=== PATIENT | male | born 1980 | race Caucasian/White ===

== ENCOUNTER 2016-10-17 20:57 | Emergency (ER) | payer SELFPAY ==
[2016-10-17 21:23] VITALS: BP 139/82; PULSE 113; TEMP 98.8; BMI 26.6
--- NOTE | 2016-10-17 23:34 | PDOC ---
History of Present Illness - General History Source: Patient Exam Limitations: No Limitations - History of Present Illness Initial Comments: 10/17/16 23:47 The patient is a 36 year old male with a significant PMH of diabetes (on Metformin) and moderate cigarette use who presents to the emergency department with a subjective fever and malaise beginning approximately this afternoon. The patient reports associated nausea and vomiting from about 4:00PM this afternoon. The patient also notes occasional productive cough with his subjective fever. The patient denies recent sick contacts or recent travel. The patient denies chest pain, shortness of breath, headache and dizziness. Denies chills, diarrhea and constipation. Denies dysuria, frequency, urgency and hematuria. Allergies: NKA Past surgical history: Lung surgery. Social history: Moderate cigarette use. No alcohol or drug use. PCP: Dr. Naranjo <Tex Pinto - Last Filed: 10/17/16 23:50> - General History Source: Patient <Yefri Loredo - Last Filed: 10/18/16 19:14> - General Chief Complaint: Pain Stated Complaint: PAIN Time Seen by Provider: 10/17/16 23:27 Past History <Tex Pinto - Last Filed: 10/17/16 23:50> - Past Medical History Diabetes: Yes Suicide Attempt (Hx): No - Surgical History Lung Surgery: Yes - Psycho/Social/Smoking Cessation Hx Anxiety: No Suicidal Ideation: No Smoking History: Current some day smoker Have you smoked in the past 12 months: Yes Number of Cigarettes Smoked Daily: 3 Information on smoking cessation initiated: No Hx Alcohol Use: No Drug/Substance Use Hx: No Substance Use Type: Alcohol <Yefri Loredo - Last Filed: 10/18/16 19:14> - Past Medical History Allergies/Adverse Reactions: Allergies Allergy/AdvReac Type Severity Reaction Status Date / Time No Known Allergies Allergy Verified 07/11/14 21:30 Home Medications: Ambulatory Orders Metformin HCl 500 mg PO BID 10/17/16 Azithromycin [Zithromax -] 250 mg PO UTDICT #6 tab 10/18/16 Review of Systems - Review of Systems Comments:: 10/17/16 23:48 CONSTITUTIONAL: (+) Subjective fever. (+) Malaise Absent: chills, diaphoresis, generalized weakness, loss of appetite HEENT: Absent: rhinorrhea, nasal congestion, throat pain, throat swelling, difficulty swallowing, mouth swelling, ear pain, eye pain, visual Changes CARDIOVASCULAR: Absent: chest pain, syncope, palpitations, irregular heart rate, lightheadedness , peripheral edema RESPIRATORY: Absent: cough, shortness of breath, dyspnea with exertion, orthopnea, wheezing, stridor, hemoptysis GASTROINTESTINAL: Absent: abdominal pain, abdominal distension, nausea, vomiting, diarrhea, constipation, melena, hematochezia GENITOURINARY: Absent: dysuria, frequency, urgency, hesitancy, hematuria, flank pain, genital pain MUSCULOSKELETAL: Absent: myalgia, arthralgia, joint swelling SKIN: Absent: rash, itching, pallor HEMATOLOGIC/IMMUNOLOGIC: Absent: easy bleeding, easy bruising, lymphadenopathy, frequent infections ENDOCRINE: Absent: unexplained weight gain, unexplained weight loss, heat intolerance, cold intolerance NEUROLOGIC: Absent: headache, focal weakness or paresthesias, dizziness, unsteady gait, seizure, mental status changes, bladder or bowel incontinence PSYCHIATRIC: Absent: anxiety, depression, suicidal or homicidal ideation, hallucinations. <Tex Pinto - Last Filed: 10/17/16 23:50> *Physical Exam - Vital Signs Last Vital Signs Temp Pulse Resp BP Pulse Ox 98.8 F 113 H 19 139/82 97 10/17/16 21:15 10/17/16 21:15 10/17/16 21:15 10/17/16 21:15 10/17/16 21:15 - Physical Exam Comments: 10/17/16 23:48 GENERAL: (+) Mild distress. Well developed, well nourished. Awake and alert. HEENT: (+) Dry oral mucosa. Normocephalic, atraumatic. PERRLA, EOMI. No conjunctival pallor. Sclera are non- icteric. Oropharynx is clear. NECK: Supple. Full ROM. No JVD. Carotid pulses 2+ and symmetric, without bruits. No thyromegaly. No lymphadenopathy. CARDIOVASCULAR: Regular rate and rhythm. No murmurs, rubs, or gallops. Distal pulses are 2+ and symmetric. PULMONARY: No evidence of respiratory distress. Lungs clear to auscultation bilaterally. No wheezing, rales or rhonchi. ABDOMINAL: Soft. Non-tender. Non-distended. No rebound or guarding. No organomegaly. Normoactive bowel sounds. MUSCULOSKELETAL Normal range of motion at all joints. No bony deformities or tenderness. No CVA tenderness. EXTREMITIES: No cyanosis. No clubbing. No edema. No calf tenderness. SKIN: Warm and dry. Normal capillary refill. No rashes. No jaundice. NEUROLOGICAL: Alert, awake, appropriate. Cranial nerves 2-12 intact. No deficits to light touch and temperature in face, upper extremities and lower extremities. No motor deficits in the in face, upper extremities and lower extremities. Normoreflexic in the upper and lower extremities. Normal speech. Toes are downgoing bilaterally. Gait is normal without ataxia. PSYCHIATRIC: Cooperative. Good eye contact. Appropriate mood and affect. <Tex Pinto - Last Filed: 10/17/16 23:50> - Vital Signs Last Vital Signs Temp Pulse Resp BP Pulse Ox 98.8 F 113 H 19 139/82 97 10/17/16 21:15 10/17/16 21:15 10/17/16 21:15 10/17/16 21:15 10/17/16 21:15 <Yefri Loredo - Last Filed: 10/18/16 19:14> ED Treatment Course - LABORATORY CBC & Chemistry Diagram: 10/18/16 00:05 10/18/16 00:05 <Yefri Loredo - Last Filed: 10/18/16 19:14> Medical Decision Making - Medical Decision Making 10/18/16 19:14 Dr. Loredo: The scribe's documentation has been prepared under my direction and personally reviewed by me in its entirery. I confirm that the note above accurately reflects all work, treatment, procedures, and medical decision making performed by me. <Yefri Loredo - Last Filed: 10/18/16 19:14> *DC/Admit/Observation/Transfer - Attestations Scribe Attestion: 10/17/16 23:48 Documentation prepared by Tex Pinto, acting as medical technologist microbiology for Yefri Loredo MD. <Tex Pinto - Last Filed: 10/17/16 23:50> - Discharge Dispostion Admit: No <Yefri Loredo - Last Filed: 10/18/16 19:14> Diagnosis at time of Disposition: Bronchitis - Discharge Dispostion Disposition: HOME Condition at time of disposition: Stable - Prescriptions Prescriptions: Azithromycin [Zithromax -] 250 mg PO UTDICT #6 tab - Referrals Referrals: Chay Naranjo [Primary Care Provider] - - Patient Instructions Printed Discharge Instructions: DI for Acute Bronchitis Print Language: [place] - Post Discharge Activity Work/School Note: Back to Work
[2016-10-17] MEDS ORDERED: SODIUM CHLORIDE 1,000 ML IV STA (23:36)
[2016-10-17] MEDS ORDERED: METOCLOPRAMIDE HCL INJECTION 10 MG/2 ML VIAL IVPUSH ONE (23:36)
[2016-10-17] MEDS ORDERED: METOCLOPRAMIDE HCL INJECTION 10 MG/2 ML VIAL ONE (23:53)
[2016-10-18 00:11] LABS: BASOPHIL 0.2 % (0-2.0); EOSINOPHIL 0.6 % (0-4.5); MCH 29.1 pg (25.7-33.7); MCHC 33.6 g/dl (32.0-35.9); MEAN CELL VOLUME 86.4 fl (80-96); MEAN PLT VOLUME 8.7 fl (7.5-11.1); NEUTROPHILS 89.7 % (42.8-82.8); PLATELET COUNT 229 K/MM3 (134-434); RDW 12.6 % (11.9-15.9); WHITE BLOOD COUNT 16.2 K/mm3 (4.0-10.0)
[2016-10-18 00:34] LABS: INR 1.11 (0.82-1.09); PROTHROMBIN TIME (PATIENT) 12.2 SEC (9.98-11.88)
[2016-10-18 00:47] LABS: ALBUMIN 3.9 g/dl (3.4-5.0); ALK PHOS 60 U/L (45-117); ANION GAP 10 (8-16); BILIRUBIN,TOTAL 1.3 mg/dL (0.2-1.0); CO2 26 mmol/L (21-32); CREATININE 0.8 mg/dL (0.7-1.3); GLUCOSE,RANDOM 198 mg/dL (74-106); MAGNESIUM 1.5 mg/dL (1.8-2.4); SGOT/AST 16 U/L (15-37); SGPT/ALT 27 U/L (12-78)
[2016-10-18 01:44] LABS: URINE APPEARANCE CLEAR; URINE BILIRUBIN NEGATIVE (NEGATIVE); URINE BLOOD 1+ (NEGATIVE); URINE COLOR LTYELLOW; URINE GLUCOSE (UA) NEGATIVE (NEGATIVE); URINE KETONE NEGATIVE (NEGATIVE); URINE LEUK ESTERASE NEGATIVE (NEGATIVE); URINE NITRITE NEGATIVE (NEGATIVE); URINE PROTEIN NEGATIVE (NEGATIVE); URINE UROBILINOGEN NEGATIVE mg/dL (0.2-1.0)
[2016-10-18 01:46] LABS: URINE RBC <1 /hpf (0-3); URINE WBC 1 /hpf (3-5)
[2016-10-18] MEDS ORDERED: AZITHROMYCIN 250 MG TABLET PO STA (02:07)
[2016-10-18] MEDS ORDERED: AZITHROMYCIN 250 MG TABLET ONE (02:20)
== END 2016-10-18 02:25 | disposition home or self-care (01) ==
LOC: JER 20:57
PROC: 3E0337Z Introduction of Electrolytic and Water Balance Substance into Peripheral Vein, Percutaneous Approach (ICD-10-PCS; principal; 2016-10-17)
PROC: 3E033GC Introduction of Other Therapeutic Substance into Peripheral Vein, Percutaneous Approach (ICD-10-PCS; 2016-10-17)
DX: J20.9 Acute bronchitis, unspecified (principal); E11.9 Type 2 diabetes mellitus without complications; Z79.84 Long term (current) use of oral hypoglycemic drugs; F17.210 Nicotine dependence, cigarettes, uncomplicated
CPT/HCPCS: 36415; 71020-TC; 80053; 81003; 81015; 83690; 83735; 85025; 85610; 99282-25

== ENCOUNTER 2017-12-10 02:13 | Emergency (ER) | payer SELFPAY ==
[2017-12-10 02:40] VITALS: BP 133/88; PULSE 82; TEMP 98.7; BMI 26.2
[2017-12-10] MEDS ORDERED: ACETAMINOPHEN 1000 MG/100 ML VIAL (NON FORMULARY) IVPB ONE (03:08)
[2017-12-10] MEDS ORDERED: SODIUM CHLORIDE 1,000 ML IV STA (03:08)
[2017-12-10] MEDS ORDERED: FAMOTIDINE 20 MG/50 ML IVPB 20 MG/50 ML MG IVPB ONE ×2 (03:08→04:11)
--- NOTE | 2017-12-10 03:17 | PDOC ---
History of Present Illness - General Chief Complaint: Weakness Stated Complaint: HIGH BLOOD SUGAR Time Seen by Provider: 12/10/17 02:58 History Source: Patient Exam Limitations: Language Barrier (phone education program coordinator used) - History of Present Illness Initial Comments: 12/10/17 03:12 Patient is a 37M with history of DM here today complaining of high blood sugar. He also is complaining of dysuria and states that he has epigastric abdominal pain. He states these symptoms have been present for the past 10 days. Endorses subjective fevers, denies chills. Denies constipation diarrhea. He states that he thinks his sugar is high because his mouth is dry. Denies etoh, tobacco, illicits. Denies prior surgeries. Past History - Past Medical History Allergies/Adverse Reactions: Allergies Allergy/AdvReac Type Severity Reaction Status Date / Time No Known Allergies Allergy Verified 12/10/17 02:40 Home Medications: Ambulatory Orders metFORMIN HCL [Metformin HCl] 1,000 mg PO BID 10/17/16 COPD: No Diabetes: Yes - Surgical History Lung Surgery: Yes - Suicide/Smoking/Psychosocial Hx Smoking History: Never smoked Have you smoked in the past 12 months: No Number of Cigarettes Smoked Daily: 3 Information on smoking cessation initiated: No Hx Alcohol Use: No Drug/Substance Use Hx: No Substance Use Type: Alcohol Review of Systems - Review of Systems Comments:: 12/10/17 03:15 GENERAL/CONSTITUTIONAL: +fever or chills. No weakness. HEAD, EYES, EARS, NOSE AND THROAT: No change in vision. No ear pain or discharge. No sore throat. CARDIOVASCULAR: No chest pain or shortness of breath RESPIRATORY: No cough, wheezing, or hemoptysis. GASTROINTESTINAL: No nausea, vomiting, diarrhea or constipation. GENITOURINARY: +dysuria, no frequency MUSCULOSKELETAL: No joint or muscle swelling or pain. No neck or back pain. SKIN: No rash NEUROLOGIC: No headache, vertigo, loss of consciousness, or change in strength/ sensation. ENDOCRINE: + increased thirst. No abnormal weight change HEMATOLOGIC/LYMPHATIC: No anemia, easy bleeding, or history of blood clots. ALLERGIC/IMMUNOLOGIC: No hives or skin allergy. *Physical Exam - Vital Signs Last Vital Signs Temp Pulse Resp BP Pulse Ox 98.7 F 82 16 133/88 97 12/10/17 02:35 12/10/17 02:35 12/10/17 02:35 12/10/17 02:35 12/10/17 02:35 - Physical Exam Comments: 12/10/17 03:16 GENERAL: Awake, alert, and fully oriented, in no acute distress HEAD: No signs of trauma, normocephalic, atraumatic EYES: PERRLA, EOMI, sclera anicteric, conjunctiva clear ENT: Auricles normal inspection, hearing grossly normal, nares patent, oropharynx clear without exudates. Moist mucosa NECK: Normal ROM, supple, no lymphadenopathy, JVD, or masses LUNGS: No distress, speaks full sentences, clear to auscultation bilaterally HEART: Regular rate and rhythm, normal S1 and S2, no murmurs, rubs or gallops, peripheral pulses normal and equal bilaterally. ABDOMEN: Soft, nontender, normoactive bowel sounds. No guarding, no rebound. No masses EXTREMITIES: Normal inspection, Normal range of motion, no edema. No clubbing or cyanosis. NEUROLOGICAL: Cranial nerves II through XII grossly intact. Normal speech, normal gait, no focal sensorimotor deficits SKIN: Warm, Dry, normal turgor, no rashes or lesions noted. ED Treatment Course - LABORATORY CBC & Chemistry Diagram: 12/10/17 03:19 12/10/17 03:19 Medical Decision Making - Medical Decision Making 12/10/17 03:16 Patient is 37M with history of DM here today complaining of epigastric abdominal pain, dysuria and possible high blood sugar. Vitals normal and stable. Exam benign. Will evaluate with abdominal labs and EKG. Will treat with fluids, tylenol, pepcid. Likely discharge. 12/10/17 03:32 EKG shows normal sinus rhythm with rate of 76. No st elevations/depressions. Normal axis. Normal intervals. No significant t wave abnormalities. 12/10/17 04:18 Laboratory Tests 12/10/17 12/10/17 12/10/17 03:08 03:19 03:19 WBC 9.8 Hgb 15.2 Plt Count 225 BUN 14 Creatinine 0.9 Random Glucose 186 H Urine Nitrite Negative Ur Leukocyte Esterase Negative CBC normal. CMP reassuring. UA clear. Lipase normal. Patient reports feeling better. Nontender abdominal exam. Will discharge. *DC/Admit/Observation/Transfer Diagnosis at time of Disposition: Hyperglycemia - Discharge Dispostion Disposition: HOME Condition at time of disposition: Good Decision to Admit order: No - Referrals Referrals: Chay Naranjo [Primary Care Provider] - - Patient Instructions Printed Discharge Instructions: Type 2 Diabetes Additional Instructions: Por favor nitin un seguimiento con silva mdico de atencin primaria para silva diabetes. Por favor regrese si tiene sntomas nuevos, que empeoran o estn relacionados, especialmente fiebre y dolor en aumento. Print Language: [place] - Post Discharge Activity
--- NOTE | 2017-12-10 03:28 | PDOC ---
Attending Attestation - Resident Resident Name: Shaun Kc - ED Attending Attestation I have performed the following: I have examined & evaluated the patient, The case was reviewed & discussed with the resident, I agree w/resident's findings & plan - HPI HPI: 12/10/17 03:29 Pt comes with specific complaint of dysuria, dry mouth and pancreatic pain. - Physicial Exam PE: 12/10/17 03:45 Normal exam. Pt has clear lungs and soft abd and pelvis. No flank pain. Afebrile pt has no swelling of extremities and he has no neuro deficits. - Medical Decision Making 12/10/17 03:46 Labs and hydration and home with meds, as needed. 12/10/17 06:50 Labs are normal, and pt feels great and he will be discharged home. Follow with PMD.
[2017-12-10] MEDS ORDERED: ACETAMINOPHEN INJECTION 100 ML IVPB ONE (03:36)
[2017-12-10 03:37] LABS: BASO % 0.4 % (0-2.0); EOS % 2.7 % (0-4.5); HEMATOCRIT 45.5 % (35.4-49); HEMOGLOBIN 15.2 GM/dL (11.7-16.9); LYMPH % 28.5 % (8-40); MCH 28.9 pg (25.7-33.7); MCHC 33.5 g/dl (32.0-35.9); MEAN CELL VOLUME 86.4 fl (80-96); MEAN PLT VOLUME 8.5 fl (7.5-11.1); MONO % 6.7 % (3.8-10.2); NEUT % 61.7 % (42.8-82.8); PLATELET COUNT 225 K/MM3 (134-434); RBC 5.27 M/mm3 (4.00-5.60); RDW 13.4 % (11.9-15.9); WHITE BLOOD COUNT 9.8 K/mm3 (4.0-10.0)
[2017-12-10 03:46] LABS: URINE APPEARANCE CLEAR; URINE BILIRUBIN NEGATIVE (<2.0 mg/dL); URINE COLOR COLORLESS; URINE GLUCOSE (UA) NEGATIVE (NEGATIVE); URINE KETONE NEGATIVE (NEGATIVE); URINE LEUK ESTERASE NEGATIVE (NEGATIVE); URINE NITRITE NEGATIVE (NEGATIVE); URINE PROTEIN NEGATIVE (NEGATIVE); URINE UROBILINOGEN NEGATIVE mg/dL (0.2-1.0)
[2017-12-10 04:05] LABS: ALBUMIN 3.8 g/dl (3.4-5.0); ALK PHOS 56 U/L (45-117); ANION GAP 10 MMOL/L (8-16); BILIRUBIN,TOTAL 0.6 mg/dL (0.2-1); BLOOD UREA NITROGEN 14 mg/dL (7-18); CALCIUM 9.2 mg/dL (8.5-10.1); CHLORIDE 105 mmol/L (98-107); CO2 25 mmol/L (21-32); CREATININE 0.9 mg/dL (0.55-1.3); GLUCOSE,RANDOM 186 mg/dL (74-106); LIPASE 335 U/L (73-393); POTASSIUM 3.9 mmol/L (3.5-5.1); SGOT/AST 21 U/L (15-37); SGPT/ALT 23 U/L (13-61); SODIUM 140 mmol/L (136-145); TOT PROT 7.2 g/dl (6.4-8.2)
--- NOTE | 2017-12-10 09:43 | EKG ---
Test Reason : Blood Pressure : / mmHG Vent. Rate : 076 BPM Atrial Rate : 076 BPM P-R Int : 154 ms QRS Dur : 098 ms QT Int : 368 ms P-R-T Axes : 045 050 057 degrees QTc Int : 414 ms NORMAL SINUS RHYTHM NORMAL ECG WHEN COMPARED WITH ECG OF 26-APR-2017 01:40, NO SIGNIFICANT CHANGE WAS FOUND Confirmed by BRAD MCKEON MD ([id number]) on 12/10/2017 9:42:27 AM Referred By: Confirmed By:BRAD MCKEON MD
== END 2017-12-10 05:02 | disposition home or self-care (01) ==
LOC: JER 02:13
PROC: 3E0337Z Introduction of Electrolytic and Water Balance Substance into Peripheral Vein, Percutaneous Approach (ICD-10-PCS; principal; 2017-12-10)
PROC: 3E033GC Introduction of Other Therapeutic Substance into Peripheral Vein, Percutaneous Approach (ICD-10-PCS; 2017-12-10)
PROC: 3E033NZ Introduction of Analgesics, Hypnotics, Sedatives into Peripheral Vein, Percutaneous Approach (ICD-10-PCS; 2017-12-10)
DX: E11.65 Type 2 diabetes mellitus with hyperglycemia (principal); Z79.84 Long term (current) use of oral hypoglycemic drugs
CPT/HCPCS: 36415; 80053; 81003; 83690; 85025; 93005; 93010; 99283-25; J0131; J7030

== ENCOUNTER 2018-09-27 22:42 | Emergency (ER) | payer OTHER ==
[2018-09-27 23:00] VITALS: BP 120/86; PULSE 75; TEMP 98.4; BMI 26.6
[2018-09-27] MEDS ORDERED: SODIUM CHLORIDE 1,000 ML IV STA (23:35)
--- NOTE | 2018-09-27 23:52 | PDOC ---
History of Present Illness - General Chief Complaint: Chest Pain Stated Complaint: HYPERGLYCEMIA History Source: Patient Exam Limitations: No Limitations - History of Present Illness Initial Comments: 09/27/18 23:33 38 yo male pmh DM presents to the ED for 2 weeks of elevated blood sugars. Pt states he takes 1000mg metformin daily, sees Urgent care staff (no specific PCP ) who prescribe it for him but he ran out of medication 2 weeks ago and has been unable to get a new prescription due to work. Pt also admits to numbness and tingling bilateral hands and R non exertional CP that are common when his BS is elevated. Denies recent illness, sick contacts, F/C/N/V, abdominal pain, changes in bowel or bladder habits Past History - Past Medical History Allergies/Adverse Reactions: Allergies Allergy/AdvReac Type Severity Reaction Status Date / Time No Known Allergies Allergy Verified 09/27/18 23:20 Home Medications: Ambulatory Orders metFORMIN HCL [Metformin HCl] 1,000 mg PO BID 10/17/16 Metformin HCl [Glucophage] 1,000 mg PO DAILY #5 tablet 09/28/18 COPD: No Diabetes: Yes - Surgical History Lung Surgery: Yes - Suicide/Smoking/Psychosocial Hx Smoking History: Never smoked Have you smoked in the past 12 months: No Number of Cigarettes Smoked Daily: 3 Hx Alcohol Use: No Drug/Substance Use Hx: No Substance Use Type: Alcohol Review of Systems - Review of Systems Constitutional: Yes: See HPI HEENTM: Yes: See HPI Respiratory: Yes: See HPI Cardiac (ROS): Yes: See HPI ABD/GI: Yes: See HPI : Yes: See HPI Musculoskeletal: Yes: See HPI Integumentary: Yes: See HPI Neurological: Yes: See HPI *Physical Exam - Vital Signs Last Vital Signs Temp Pulse Resp BP Pulse Ox 98.4 F 75 19 120/86 99 09/27/18 22:50 09/27/18 22:50 09/27/18 22:50 09/27/18 22:50 09/27/18 22:50 - Physical Exam General Appearance: Yes: Nourished, Appropriately Dressed. No: Apparent Distress HEENT: positive: EOMI Neck: positive: Supple. negative: Carotid bruit Respiratory/Chest: positive: Lungs Clear, Normal Breath Sounds. negative: Respiratory Distress Cardiovascular: positive: Regular Rhythm, Regular Rate, S1, S2. negative: Edema , JVD, Murmur Vascular Pulses: Dorsalis-Pedis (R): 4+, Doralis-Pedis (L): 4+ Gastrointestinal/Abdominal: positive: Flat, Soft. negative: Pulsatile Mass, Distended, Guarding, Rebound, Tenderness Musculoskeletal: negative: CVA Tenderness Extremity: positive: Normal Capillary Refill, Normal Inspection Integumentary: positive: Normal Color, Dry, Warm Neurologic: positive: Fully Oriented, Alert, Normal Mood/Affect, Normal Response ED Treatment Course - LABORATORY CBC & Chemistry Diagram: 09/27/18 11:55 09/27/18 11:55 - ADDITIONAL ORDERS Additional order review: Laboratory Results 09/27/18 23:18 POC Glucometer 361 09/27/18 23:18 POC Glucometer 361 - RADIOLOGY Radiology Studies Ordered: Category Date Time Status CHEST X-RAY PORTABLE* [RAD] Stat Radiology 09/27/18 23:31 Ordered Medical Decision Making - Medical Decision Making 09/28/18 02:06 38 yo male pmh DM presents to the ED for 2 weeks of elevated blood sugars. Pt states he takes 1000mg metformin daily, sees Urgent care staff (no specific PCP ) who prescribe it for him but he ran out of medication 2 weeks ago and has been unable to get a new prescription due to work. Pt also admits to numbness and tingling bilateral hands and R non exertional CP that are common when his BS is elevated. Denies recent illness, sick contacts, F/C/N/V, abdominal pain, changes in bowel or bladder habits vitals WNL pt well appearing, NAD EKG NSR without ischemic changes CXR no acute path DDX INLT: DKA/HHS, elevated BS, infection labs WNL including acetone, trop, WBC BS 361, will give 2L NS and reassess BS 230s after 2L Pt continues to be asymptomatic, resting comfortably will refill metformin for 5 days until pt can see PCP Will give referral to [facility] Pt understands and agrees with plan, strict return precautions given *DC/Admit/Observation/Transfer Diagnosis at time of Disposition: Hyperglycemia - Discharge Dispostion Disposition: HOME Condition at time of disposition: Stable Decision to Admit order: No - Referrals Referrals: [facility] [Provider Group] - Patient Instructions Printed Discharge Instructions: DI for Atypical Chest Pain, DI for Hyperglycemia -- Adult Additional Instructions: Consulte a shira santiagoico de alessia o llame para hacer julio c sis con el mdico de alessia que se le remiti en las prximas 48 horas. Vuelva a llenar silva medicamento para la diabetes y visite a mayda mdicos regularmente para chequeos. Regrese a la rissa de emergencias para detectar sntomas nuevos o preocupantes, que incluyen, entre otros: dolor en el pecho, azcar en siddhartha elevada / no controlada, incapacidad para comer o beber, fiebre win. Christopher Print Language: ENGLISH - Post Discharge Activity
[2018-09-28 00:31] LABS: URINE APPEARANCE CLEAR; URINE BILIRUBIN NEGATIVE (NEGATIVE); URINE COLOR YELLOW; URINE GLUCOSE (UA) 3+ (NEGATIVE); URINE KETONE NEGATIVE (NEGATIVE); URINE LEUK ESTERASE NEGATIVE (NEGATIVE); URINE NITRITE NEGATIVE (NEGATIVE); URINE PROTEIN NEGATIVE (NEGATIVE); URINE UROBILINOGEN 0.2 mg/dL (0.2-1.0)
[2018-09-28 00:32] LABS: BASO % 0.5 % (0-2.0); EOS % 1.4 % (0-4.5); HEMATOCRIT 44.3 % (35.4-49); LYMPH % 22.3 % (8-40); MCH 29.2 pg (25.7-33.7); MCHC 33.9 g/dl (32.0-35.9); MEAN CELL VOLUME 86.1 fl (80-96); MEAN PLT VOLUME 8.6 fl (7.5-11.1); NEUT % 69.8 % (42.8-82.8); PLATELET COUNT 248 K/MM3 (134-434); RBC 5.14 M/mm3 (4.00-5.60); WHITE BLOOD COUNT 8.5 K/mm3 (4.0-10.0)
[2018-09-28 01:11] LABS: ALBUMIN 3.8 g/dl (3.4-5.0); ALK PHOS 64 U/L (45-117); ANION GAP 8 MMOL/L (8-16); BILIRUBIN,TOTAL 0.5 mg/dL (0.2-1); BLOOD UREA NITROGEN 11.2 mg/dL (7-18); CALCIUM 8.9 mg/dL (8.5-10.1); CHLORIDE 102 mmol/L (98-107); CO2 26 mmol/L (21-32); POTASSIUM 3.9 mmol/L (3.5-5.1); SGOT/AST 15 U/L (15-37); SGPT/ALT 18 U/L (13-61); SODIUM 137 mmol/L (136-145); TOT PROT 6.9 g/dl (6.4-8.2)
[2018-09-28] MEDS ORDERED: SODIUM CHLORIDE 1,000 ML IV STA (01:15)
--- NOTE | 2018-09-28 01:16 | PDOC ---
Documentation entered by Vincent Link SCRIBE, acting as scribe for Eboni Montanez MD. Eboni Montanez MD: This documentation has been prepared by the Nikolay ramos Xhesika, SCRIBE, under my direction and personally reviewed by me in its entirety. I confirm that the documentation accurately reflects all work, treatment, procedures, and medical decision making performed by me. Attending Attestation - Resident Resident Name: Jg Garcia - ED Attending Attestation I have performed the following: I have examined & evaluated the patient, The case was reviewed & discussed with the resident, I agree w/resident's findings & plan, Exceptions are as noted - HPI HPI: 09/27/18 23:58 The patient is a 38 year old male with a significant PMH of DM who presents to the emergency department for 2 weeks of elevated blood sugar. The patient states he normally takes 1000mg of Metformin, however, he ran out of his medications the last 2 weeks and was unable to see his doctor (at urgent care) due to his work schedule. Patient states he endorses a numbness/tingling sensation on b/l hands and R sided chest pain, however, he notes he endorses these symptoms when his blood sugar is elevated. The patient denies shortness of breath, headache and dizziness. Denies fever, chills, cough, nausea, vomiting, diarrhea and constipation. Denies dysuria, frequency, urgency and hematuria. Allergies: NKDA - Physicial Exam PE: 09/28/18 02:21 awake alert nad lungs clear heart rrr no mrg abd soft nt nd ext wwp. right sided chest wall ttp. no calf edema. no calf tenderness. - Medical Decision Making 09/28/18 02:22 38 yo DM ran out of meds 1 weeks ago, c/o feeling high sugars, dizzy, right sided chest pain. has had similar feeling in past when sugars high. sugar 360 r/o dka. labs ekg trop iv hydration repeat sugar 260. will dc home with rx for metformin, ekg normal trop negative. cxr normal Heart Score/ECG Review #1 General ECG Interpretation: Sinus Rhythm (73), Normal Rate (73), Normal Intervals, No acute ischemic changes
[2018-09-28 01:17] LABS: GLUCOSE,RANDOM 361 mg/dL (74-106)
--- NOTE | 2018-09-29 11:37 | EKG ---
Test Reason : Blood Pressure : / mmHG Vent. Rate : 073 BPM Atrial Rate : 073 BPM P-R Int : 160 ms QRS Dur : 118 ms QT Int : 372 ms P-R-T Axes : 041 041 055 degrees QTc Int : 409 ms NORMAL SINUS RHYTHM NON-SPECIFIC INTRA-VENTRICULAR CONDUCTION DELAY BORDERLINE ECG WHEN COMPARED WITH ECG OF 10-DEC-2017 03:23, NO SIGNIFICANT CHANGE WAS FOUND Confirmed by CARLOTTA ALVARADO MD ([id number]) on 09/29/2018 11:37:17 AM Referred By: Confirmed By:CARLOTTA ALVARADO MD
--- NOTE | 2018-10-03 11:40 | EKG ---
Test Reason : Blood Pressure : / mmHG Vent. Rate : 075 BPM Atrial Rate : 075 BPM P-R Int : 164 ms QRS Dur : 114 ms QT Int : 382 ms P-R-T Axes : 051 040 045 degrees QTc Int : 426 ms NORMAL SINUS RHYTHM NORMAL ECG WHEN COMPARED WITH ECG OF 10-DEC-2017 03:23, NO SIGNIFICANT CHANGE WAS FOUND Confirmed by VISHNU RODRIGUEZ MD ([id number]) on 10/03/2018 11:40:29 AM Referred By: Confirmed By:VISHNU RODRIGUEZ MD
== END 2018-09-28 02:45 | disposition home or self-care (01) ==
LOC: JER 22:42
PROC: 3E0337Z Introduction of Electrolytic and Water Balance Substance into Peripheral Vein, Percutaneous Approach (ICD-10-PCS; principal; 2018-09-27)
DX: E11.65 Type 2 diabetes mellitus with hyperglycemia (principal)
CPT/HCPCS: 36415; 71045-TC-FY; 80053; 81003; 82009; 82550; 82553; 82962; 84484; 85025; 93005; 93010; 99282-25; J7030